=== PATIENT | female | born 1970 | race Caucasian/White ===

== ENCOUNTER 2018-05-27 05:47 | Day surgery (SDC) | payer OTHER ==
[2018-05-27] MEDS ORDERED: MIDAZOLAM 1 MG/ML 2 ML INJ (08:08)
[2018-05-27] MEDS ORDERED: FENTAnyl 50 MCG/ML VIAL (08:08)
== END 2018-05-27 08:44 | disposition home or self-care (01) ==
LOC: GIL 05:47
DX: K44.9 Diaphragmatic hernia without obstruction or gangrene (principal); K21.9 Gastro-esophageal reflux disease without esophagitis; K29.60 Other gastritis without bleeding; E78.5 Hyperlipidemia, unspecified
CPT/HCPCS: 43239; 84703; 88305; 88312